=== PATIENT | female | born 1970 | race Caucasian/White ===

== ENCOUNTER → 2018-05-27 | Outpatient (CLI) | payer BC ==
--- NOTE | 2018-05-27 07:51 | DIAGNOSTIC IMAGING REPORT ---
MRI OF THE LEFT SHOULDER CLINICAL HISTORY: Left shoulder pain. Rotator cuff tear. COMPARISON STUDY: No priors. TECHNIQUE: MRI of the left shoulder was performed utilizing various T1 and T2 weighted sequences in the axial, sagittal, coronal planes. IV contrast was not administered for this examination. Note that interpretation is suboptimal without plain film correlate. FINDINGS: Rotator cuff: There is tendinopathy of the supraspinatous tendon, with partial-thickness tearing distally. There is a small full-thickness tear seen anteriorly located approximately 8 mm from the leading edge. There is no musculotendinous retraction or intramuscular edema. The infraspinatus tendon appears maintained. The supraspinatus and intraspinous tendons are preserved. The teres minor and subscapularis tendons are intact. There is trace subdeltoid bursal fluid. The acromioclavicular joint is unremarkable. Biceps tendon: The long head of the biceps tendon is normal in signal intensity and located within the bicipital groove. The anchor is maintained. Labrum: There is mild degenerative fraying of the posterior/superior labrum. Shoulder joint: There is no joint effusion. The articular cartilage over the glenoid is well maintained. Normal marrow signal intensity is preserved of the visualized osseous structures. Musculature and soft tissues: The musculature of the shoulder is normal in bulk and signal intensity. No atrophy is seen. IMPRESSION: 1. There is tendinopathy of the supraspinatus tendon, with partial thickness tearing distally. 2. A small full-thickness tear of the supraspinatus is seen anteriorly approximate 8 mm from the leading edge. 3. The remainder of the rotator cuff appears intact. 4. There is mild degenerative fraying of the posterior/superior labrum Electronically signed by: Quentin Hwang M.D. 05/27/2018 7:50 AM Dictated Date/Time: 05/27/2018 7:34 AM
== END | disposition home or self-care (01) ==
LOC: C.MRIBC 06:42
PROVIDERS: ATTEND Orthopaedic Surgery Orthopaedic Surgery of the Spine
DX: M75.121 Complete rotator cuff tear or rupture of right shoulder, not specified as traumatic (principal); M75.02 Adhesive capsulitis of left shoulder

== ENCOUNTER → 2018-06-06 | Outpatient (CLI) | payer BC ==
[~2018-06-06] MED LIST: BIOTCAP2 PO; CHOL2000 PO; CYAN100020; CYAN100T6 SC; DESM1TAB16 PO; HYDR-5688 PO; KETO10TA PO; LEVO112T2 PO; MELO7.5T5 PO; NORG1TAB68 PO; RIZA10TA18 PO; TOPI100T20 PO; hydrocortisone PO
[2018-06-06 16:43] LABS: HEMATOCRIT 37.1 % (37-47); HEMOGLOBIN 12.5 g/dL (12.0-16.0); MEAN CELL VOLUME 82.6 fL (80-100); MEAN CORPUSCULAR HEMOGLOBIN 27.8 pg (25-34); MEAN CORPUSCULAR HGB CONC 33.7 g/dl (32-36); MEAN PLATELET VOLUME 10.5 fL (7.4-10.4); PLATELET COUNT 288 K/uL (130-400); RED CELL DISTRIBUTION WIDTH CV 14.3 % (11.5-14.5); RED CELL DISTRIBUTION WIDTH SD 42.8 fL (36.4-46.3)
[2018-06-06 16:53] LABS: BLOOD UREA NITROGEN 10 mg/dl (7-18); CALCIUM 8.7 mg/dl (8.5-10.1); CARBON DIOXIDE 20 mmol/L (21-32); CREATININE 1.13 mg/dl (0.60-1.20); GLUCOSE 115 mg/dl (70-99); POTASSIUM 3.8 mmol/L (3.5-5.1); SODIUM 140 mmol/L (136-145)
[2018-06-06 17:23] LABS: BASO % 1.2 %; BASO ABS # 0.11 K/uL (0-0.2); EOS % 3.6 %; EOS ABS # 0.34 K/uL (0-0.5); IG# 0.01 K/uL (0.00-0.02); LYMPH % 32.6 %; MONO % 5.9 %; MONO ABS # 0.56 K/uL (0.11-0.59); NEUT % 56.6 %; NEUT ABS # 5.38 K/uL (1.4-6.5)
== END | disposition home or self-care (01) ==
LOC: C.LABBC 14:32
PROVIDERS: ATTEND Orthopaedic Surgery
DX: Z01.812 Encounter for preprocedural laboratory examination (principal); M75.00 Adhesive capsulitis of unspecified shoulder